=== PATIENT | male | born 2000 | race Hispanic/Latino ===

== ENCOUNTER 2022-08-31 10:23 | Emergency (ER) | payer SELFPAY ==
[2022-08-31 10:30] VITALS: BP 110/66
[2022-08-31] MEDS ORDERED: OFLOXACIN0.3 % OS (10:55)
[2022-08-31] MEDS ORDERED: CEPHALEXIN500 MG PO (10:58)
[2022-08-31 11:00] VITALS: BP 107/64
== END 2022-08-31 11:15 | disposition home or self-care (01) | DRG 125 ==
LOC: ED 10:23
DX: S05.02XA Injury of conjunctiva and corneal abrasion without foreign body, left eye, initial encounter (principal); X58.XXXA Exposure to other specified factors, initial encounter